=== PATIENT | male | born 1960 | race American Indian/Alaskan Native ===

== ENCOUNTER 2017-08-28 12:59 | Emergency (ER) | payer OTHER ==
[2017-08-28 13:16] VITALS: RESP 18; O2SAT 100
[2017-08-28] MEDS ORDERED: Morphine 2 mg/2 mL syringe IVP STA (13:25)
[2017-08-28] MEDS ORDERED: Sodium Chloride 0.9% 1,000 ML IV STA (13:28)
--- NOTE | 2017-08-28 13:37 | ED PDOC ---
Arrival/HPI - General Chief Complaint: Rib Injury Time Seen by Provider: 08/28/17 13:23 Historian: Patient - History of Present Illness Narrative History of Present Illness (Text): 08/28/17 13:34 A 56 year old male, whose medically history includes insulin dependent diabetes , who recently just immigrated from [facility] presents to the emergency department for gradual, atraumatic, spontaneous right sided mid axillary subcostal rib pain , which began two weeks ago. The patient notes that these episodes are intermittent, but are lasting hours at a time. He admits that the pain is worsened by twisting, turning, and sitting up in bed, otherwise the pain is dormant. He denies any further associated factors, shortness of breath, dysuria , hematuria, history of kidney stones, cough, fever, chills, or any other complaints at this time. The patient also notes an additional pain bilaterally to his knees and downward, which began several months ago. Time/Duration: > week (2 weeks) Symptom Onset: Sudden Symptom Course: Unchanged Activities at Onset: Light Context: Home Past Medical History - Provider Review Nursing Documentation Reviewed: Yes - Endocrine/Metabolic Hx Diabetes Mellitus Type 2: Yes - Psychiatric Hx Substance Use: No - Anesthesia Hx Anesthesia: No Hx Anesthesia Reactions: No Hx Malignant Hyperthermia: No Family/Social History - Physician Review Nursing Documentation Reviewed: Yes Family/Social History: No Known Family HX Smoking Status: Never Smoked Hx Alcohol Use: No Hx Substance Use: No Allergies/Home Meds Allergies/Adverse Reactions: Allergies No Known Allergies Allergy (Verified 08/28/17 13:12) Review of Systems - Physician Review All systems were reviewed & negative as marked: Yes - Review of Systems Constitutional: absent: Fevers Respiratory: absent: SOB, Cough Cardiovascular: Other (subcostal right sided rib pain ). absent: Chest Pain Genitourinary Male: absent: Dysuria, Hematuria Musculoskeletal: Other (bilateral knee pain moving downward) Physical Exam Vital Signs Reviewed: Yes Vital Signs Temp Pulse Resp BP Pulse Ox 08/28/17 17:23 67 18 162/97 H 100 08/28/17 12:59 98.6 F 70 18 155/99 H 100 Temperature: Afebrile Blood Pressure: Hypertensive Pulse: Regular Respiratory Rate: Normal Appearance: Positive for: Well-Appearing, Non-Toxic, Comfortable Pain Distress: None Mental Status: Positive for: Alert and Oriented X 3 - Systems Exam Head: Present: Atraumatic, Normocephalic Pupils: Present: PERRL Extroacular Muscles: Present: EOMI Conjunctiva: Present: Normal Mouth: Present: Moist Mucous Membranes Neck: Present: Normal Range of Motion Respiratory/Chest: Present: Clear to Auscultation, Good Air Exchange. No: Respiratory Distress, Accessory Muscle Use Cardiovascular: Present: Regular Rate and Rhythm, Normal S1, S2. No: Murmurs Abdomen: No: Tenderness, Distention, Peritoneal Signs Back: Present: Normal Inspection Upper Extremity: Present: Normal Inspection. No: Cyanosis, Edema Lower Extremity: Present: Normal Inspection. No: Edema Neurological: Present: GCS=15, CN II-XII Intact, Speech Normal Skin: Present: Warm, Dry, Normal Color. No: Rashes Psychiatric: Present: Alert, Oriented x 3, Normal Insight, Normal Concentration Medical Decision Making ED Course and Treatment: 08/28/17 13:37 Impression: A 56 year old male with right sided subcostal rib pain. Differential Diagnosis included but are not limited to: Plan: -- EKG -- Chest X-ray -- Labs -- IV Fluids -- Morphine -- Urinalysis -- Reassess and disposition Progress Notes: 08/28/17 18:07 serial bowel exams benign ct resulatation explained to patient and the importance of dietary modification to facilitate better bowel output. Importance of followup regarding left renal cyst. for which patient will be referred to urology followup. - Lab Interpretations Lab Results: 08/28/17 13:37 08/28/17 13:37 Lab Results 08/28/17 15:29: POC Glucose (mg/dL) 254 H 08/28/17 15:09: Urine Color Yellow, Urine Appearance Clear, Urine pH 6.0, Ur Specific [place] 1.015, Urine Protein Negative, Urine Glucose (UA) >=1000, Urine Ketones Negative, Urine Blood Negative, Urine Nitrate Negative, Urine Bilirubin Negative, Urine Urobilinogen 0.2, Ur Leukocyte Esterase Negative 08/28/17 13:37: Sodium 138, Potassium 5.0, Chloride 100, Carbon Dioxide 27, Anion Gap 17, BUN 14, Creatinine 0.8, Est GFR ( Amer) > 60, Est GFR (Non- Af Amer) > 60, Random Glucose 423 H*, Calcium 9.4, Total Bilirubin 0.3, AST 24, ALT 47, Alkaline Phosphatase 68, Total Protein 7.2, Albumin 4.2, Globulin 3.0, Albumin/Globulin Ratio 1.4 08/28/17 13:37: PT 11.1, INR 0.97, APTT 27.7 08/28/17 13:37: WBC 3.5 L, RBC 5.35, Hgb 14.9, Hct 41.8 L, MCV 78.1 L, MCH 27.9 , MCHC 35.6, RDW 12.6, Plt Count 262, MPV 11.1 H, Gran % 42.0 L, Lymph % (Auto) 48.0 H, [place] % (Auto) 4.3, Eos % (Auto) 5.1 H, Baso % (Auto) 0.6, Gran # 1.47, Lymph # (Auto) 1.7, [place] # (Auto) 0.2, Eos # (Auto) 0.2, Baso # (Auto) 0.02 - RAD Interpretation Radiology Orders: 08/28/17 13:23 CHEST TWO VIEWS (PA/LAT) [RAD] Stat 08/28/17 16:28 ABDOMEN & PELVIS [ABD & PELVIS IV CONTRAST ONLY] [CT] Stat - Medication Orders Current Medication Orders: Discontinued Medications Sodium Chloride (Sodium Chloride 0.9%) 1,000 mls @ 999 mls/hr IV .Q1H1M STA Stop: 08/28/17 14:28 Last Admin: 08/28/17 13:42 Dose: 999 mls/hr eMAR Start Stop Document 08/28/17 13:42 LA (Rec: 08/28/17 13:42 RAJANI [id number]) Intravenous Solution Start Date 08/28/17 Start Time 13:42 End Date 08/28/17 End time 14:43 Total Infusion Time 61 Morphine Sulfate (Morphine) 2 mg IVP STAT STA Stop: 08/28/17 13:26 Last Admin: 08/28/17 13:42 Dose: 2 mg IVP Administration Document 08/28/17 13:42 LA (Rec: 08/28/17 13:42 LA [id number]) Charges for Administration # of IVP Administrations 1 - Scribe Statement The provider has reviewed the documentation as recorded by the Dreaibvera Gallardo Provider Scribe Attestation: All medical record entries made by the Scribe were at my direction and personally dictated by me. I have reviewed the chart and agree that the record accurately reflects my personal performance of the history, physical exam, medical decision making, and the department course for this patient. I have also personally directed, reviewed, and agree with the discharge instructions and disposition. Disposition/Present on Arrival - Present on Arrival Any Indicators Present on Arrival: No History of DVT/PE: No History of Uncontrolled Diabetes: Yes Urinary Catheter: No History of Decub. Ulcer: No History Surgical Site Infection Following: None - Disposition Have Diagnosis and Disposition been Completed?: Yes Diagnosis: Constipation Disposition: HOME/ ROUTINE Disposition Time: 18:10 Patient Plan: Discharge Patient Problems: Current Active Problems Problem Status Onset Constipation Acute Condition: CRITICAL Discharge Instructions (ExitCare): Constipation in Adults, Constipation, Adult (DC) Print Language: MOHAWK Additional Instructions: Please be advised your blood testing is appearing within normal limits excepting your blood sugar which was elevated. your ct results have been given to you and betrays evidence of stool retention . You must include increased roughage (fruits/ and dark green leafy veegtables and brown rice) in your diet as well as increased water in between meals . Prescriptions: Acetaminophen [Tylenol] 650 mg PO Q8 PRN #40 capsule PRN Reason: Pain, Moderate (4-7) Polyethylene Glycol 3350 [Miralax] 17 gm PO DAILY 2 Days ml Psyllium Seed [Fiber Smooth] 283 gm PO BID PRN 14 Days powder PRN Reason: Constipation Sennosides [Senna] 8.6 mg PO HS PRN #20 tablet PRN Reason: Constipation Referrals: PCP,NO [Primary Care Provider] - Follow up with primary [facility] at [facility] [place] [Outside] - Follow up with primary Chandler Hopkins MD [Staff Provider] - Follow up with primary Forms: Accept Software (Slovak)
[2017-08-28 14:03] LABS: ALB/GLOB RATIO 1.4 (1.1-1.8); ALBUMIN 4.2 g/dL (3.0-4.8); ALT/SGPT 47 U/L (7-56); AST/SGOT 24 U/L (17-59); BLOOD UREA NITROGEN 14 mg/dL (7-21); CALCIUM 9.4 mg/dL (8.4-10.5); GFR AFRICAN-AMERICAN > 60; GFR NON-AFRICAN AMERICAN > 60
[2017-08-28 14:09] LABS: BASO # 0.02 K/mm3 (0.0-2.0); BASO % 0.6 % (0.0-3.0); EOS # 0.2 (0.0-0.7); EOS % 5.1 % (1.5-5.0); GRAN # 1.47 (1.4-6.5); HEMOGLOBIN 14.9 g/dL (14.0-18.0); LYMPH # 1.7 (1.2-3.4); MEAN CELL VOLUME 78.1 fl (80.0-105.0); MEAN CORPUSCULAR HEMOGLOBIN 27.9 pg (25.0-35.0); MEAN CORPUSCULAR HGB CONC 35.6 g/dl (31.0-37.0); MEAN PLATELET VOLUME 11.1 fl (7.0-11.0); MONO # 0.2 (0.1-0.6); MONO % 4.3 % (1.0-6.0); RBC 5.35 10^6/uL (3.5-6.1); RED CELL DISTRIBUTION WIDTH 12.6 % (11.5-14.5); WHITE BLOOD COUNT 3.5 10^3/ul (4.5-11.0)
[2017-08-28 14:15] LABS: INR 0.97 (0.93-1.08); PARTIAL THROMBOPLASTIN TIME 27.7 Seconds (25.1-36.5); PROTHROMBIN TIME 11.1 SECONDS (9.4-12.5)
[2017-08-28] MEDS ORDERED: Insulin Regular 1 UNITS/0.01 ML ML SC ONE (14:26)
--- NOTE | 2017-08-28 15:30 | RAD ---
HISTORY: Routine medical exam COMPARISON: No prior. TECHNIQUE: Chest PA and lateral FINDINGS: LUNGS: No active pulmonary disease. PLEURA: No significant pleural effusion identified. No pneumothorax apparent. CARDIOVASCULAR: Normal. OSSEOUS STRUCTURES: Minor multilevel degenerative spondylosis of the thoracic spine. VISUALIZED UPPER ABDOMEN: Normal. OTHER FINDINGS: None. IMPRESSION: No active disease.
[2017-08-28 15:46] LABS: URINE BILIRUBIN NEGATIVE (NEGATIVE); URINE BLOOD NEGATIVE (NEGATIVE); URINE GLUCOSE (UA) >=1000 mg/dL (NEGATIVE); URINE LEUKOCYTE ESTERASE NEGATIVE Leu/uL (NEGATIVE); URINE PROTEIN NEGATIVE mg/dL (<30 mg/dL); URINE UROBILINOGEN 0.2 E.U./dL (<1 E.U./dL)
[2017-08-28 15:48] LABS: URINE APPEARANCE CLEAR (CLEAR); URINE COLOR YELLOW (YELLOW)
[2017-08-28] MEDS ORDERED: Iohexol 350 MG/100 ML VIAL ONE (16:52)
--- NOTE | 2017-08-28 17:27 | CT ---
PROCEDURE: CT abdomen pelvis dated 08/28/2017 HISTORY: Right flank pain COMPARISON: None. TECHNIQUE: Contiguous helical/transaxial images of the abdomen and pelvis of performed following intravenous injection of approximately 100 cc Omnipaque 350 contrast material. Additional 2D sagittal and coronal reformats generated. This CT exam was performed using one or more of the following dose reduction techniques: Automated exposure control, adjustment of the mA and/or kV according to patient size, and/or use of iterative reconstruction technique. Radiation dose: Total exam DLP = 291.51 mGy-cm. FINDINGS: LOWER THORAX: The heart size is within range of normal. No significant pericardial effusion. Mild passive/dependent type atelectasis both posterior lower lung zones. Mild emphysematous changes. No effusion or basilar pneumothorax There is a small hiatal hernia LIVER: Liver exhibits normal size measuring approximately 15 cm in CC dimension. Mild diffuse fatty hepatic infiltration. No obvious hepatic masses or collections seen on this study. Portal and splenic veins are opacified. GALLBLADDER AND BILE DUCTS: Unremarkable. PANCREAS: Unremarkable. No mass. No ductal dilatation. SPLEEN: Unremarkable. No splenomegaly. ADRENALS: Unremarkable. KIDNEYS AND URETERS: Kidneys demonstrate symmetric nephrograms. No evidence of nephrolithiasis or hydronephrosis. Partially exophytic well-circumscribed round/elliptical shaped approximately 3.2 cm low-attenuation focus arising from the anterior cortex upper pole left kidney likely representing cyst hyperdense cyst with Hounsfield units ranging between the low teens to mid 20s. Followup ultrasound could confirm. BLADDER: Urinary bladder physiologically distended. No evidence of intraluminal urinary bladder calculi. The REPRODUCTIVE: Prostate gland measures approximately 4 cm in transverse dimension. APPENDIX: What is felt to represent normal appendix best seen on axial image number [id number] henry the and coronal image number [id number]. No periappendiceal inflammatory changes. BOWEL: Evaluation of the bowel is limited due to the lack of oral contrast material. Stomach is relatively collapsed which in part accounts for thick-walled appearance. Gastritis or other intrinsic/invasive wall lesion not excluded. Clinical correlation recommended. Visualized loops of small bowel exhibit relatively normal contour and caliber. No evidence of acute mechanical small bowel obstruction however there are of fecalized appearing contents consistent with the small bowel stasis There is a large amount of stool seen within the cecum at ascending and to a lesser degree transverse and descending colon consistent with fecal retention/constipation. The no definitive mural wall thickening. PERITONEUM: Unremarkable. No fluid collection. No free air. Small fat containing umbilical hernia. LYMPH NODES: Unremarkable. No enlarged lymph nodes. VASCULATURE: Unremarkable. No aortic aneurysm. BONES: Minor degenerative spondylosis lower thoracic and lumbar spine. There are no acute compression fractures no retropulsed fragments. Vertebral bodies exhibit normal stature. OTHER FINDINGS: None. IMPRESSION: Findings consistent with constipation as described. Mild fatty hepatic infiltration. Rounded low--attenuation focus a arising from the anterior aspect upper pole left kidney which exhibits Hounsfield units ranging between the low teens to mid 20s most likely representing a hyperdense cyst. Followup ultrasound could confirm. See above discussion for additional details and findings.
[2017-08-28 19:00] LABS: HDL CHOLESTEROL 27 mg/dL (29-60)
[2017-08-28 19:11] LABS: LDL CHOLESTEROL 140 mg/dL (0-129)
[2017-08-28 19:12] VITALS: BP 149/88; PULSE 74; TEMP 98.4
== END 2017-08-28 19:25 | disposition home or self-care (01) ==
LOC: ED 12:59
DX: K59.00 Constipation, unspecified (principal); E11.9 Type 2 diabetes mellitus without complications; Z79.4 Long term (current) use of insulin
CPT/HCPCS: 71046; 74177; 80053; 80061; 81003; 82948; 83036; 85025; 85610; 85730; 87040; 87086; 96361; 96374; 99284; J2270; J7030; Q9967

== ENCOUNTER 2017-09-25 09:51 | Emergency (ER) | payer OTHER ==
[2017-09-25 10:07] VITALS: TEMP 98.3
[2017-09-25] MEDS ORDERED: Sodium Chloride 0.9% 1,000 ML IV STA ×2 (10:34→12:12)
[2017-09-25] MEDS ORDERED: Insulin Regular 1 UNITS/0.01 ML ML IVP STA ×2 (10:35→11:53)
[2017-09-25 10:47] LABS: BASO # 0.01 K/mm3 (0.0-2.0); BASO % 0.3 % (0.0-3.0); EOS # 0.3 (0.0-0.7); EOS % 9.3 % (1.5-5.0); GRAN # 1.6 (1.4-6.5); GRAN % 43.7 % (50.0-68.0); HEMOGLOBIN 14.3 g/dL (14.0-18.0); LYMPH # 1.5 (1.2-3.4); MEAN CELL VOLUME 78.5 fl (80.0-105.0); MEAN CORPUSCULAR HEMOGLOBIN 27.7 pg (25.0-35.0); MEAN CORPUSCULAR HGB CONC 35.2 g/dl (31.0-37.0); MONO # 0.2 (0.1-0.6); MONO % 5.7 % (1.0-6.0); RBC 5.17 10^6/uL (3.5-6.1); RED CELL DISTRIBUTION WIDTH 12.7 % (11.5-14.5); WHITE BLOOD COUNT 3.7 10^3/ul (4.5-11.0)
--- NOTE | 2017-09-25 10:47 | ED PDOC ---
Arrival/HPI - General Chief Complaint: Back Pain Time Seen by Provider: 09/25/17 10:10 Historian: Patient - History of Present Illness Narrative History of Present Illness (Text): 09/25/17 10:36 56yo male with pmhx of NIDDM who present with complaint of elevated BS and lower back pain. The brother by the bedside report history of similar back pain years ago. States he was seen by a Doctor in [place] country then and the pain resolved with physical therapy. He describes pain as crampy/sharp usually worse with prolonged sitting and walking . Pain started 2weeks ago and became increasingly worse. Notes that pain radiates to his left lower leg. He states his sugar has been uncontrolled with Novolog 70/30. States Novolog was prescribed here earlier this month. He denies abdominal pain, nausea, vomiting, focal weakness, chest pain, urinary/fecal incontinence, saddle anesthesia, fever , chills, any other complaint. Past Medical History - Provider Review Nursing Documentation Reviewed: Yes - Infectious Disease Hx of Infectious Diseases: None - Endocrine/Metabolic Hx Diabetes Mellitus Type 2: Yes - Psychiatric Hx Substance Use: No - Anesthesia Hx Anesthesia: No Hx Anesthesia Reactions: No Hx Malignant Hyperthermia: No Family/Social History - Physician Review Nursing Documentation Reviewed: Yes Family/Social History: Unknown Family HX Smoking Status: Never Smoked Hx Alcohol Use: No Hx Substance Use: No Allergies/Home Meds Allergies/Adverse Reactions: Allergies No Known Allergies Allergy (Verified 08/28/17 13:12) Home Medications: Home Meds Medication Instructions Recorded Confirmed Insulin Aspart Prot/Insuln Asp 0 unit SQ DAILY 09/25/17 09/25/17 [Novolog Mix 70-30 Vial] Review of Systems - Physician Review All systems were reviewed & negative as marked: Yes - Review of Systems Constitutional: Normal Eyes: Normal ENT: Normal Respiratory: Normal Cardiovascular: Normal Gastrointestinal: Normal Genitourinary Male: Normal Musculoskeletal: Back Pain Skin: Normal Neurological: Normal Endocrine: Normal Hemo/Lymphatic: Normal Psychiatric: Normal Physical Exam Vital Signs Reviewed: Yes Vital Signs Temp Pulse Resp BP Pulse Ox 09/25/17 13:55 78 18 140/80 99 09/25/17 13:00 78 18 132/79 98 09/25/17 11:51 69 18 136/80 99 09/25/17 10:02 98.3 F 86 16 99 Temperature: Afebrile Blood Pressure: Normal Pulse: Regular Respiratory Rate: Normal Appearance: Positive for: Well-Appearing, Non-Toxic, Comfortable Pain Distress: None Mental Status: Positive for: Alert and Oriented X 3 - Systems Exam Head: Present: Atraumatic, Normocephalic Pupils: Present: PERRL Extroacular Muscles: Present: EOMI Conjunctiva: Present: Normal Mouth: Present: Moist Mucous Membranes Neck: Present: Normal Range of Motion Respiratory/Chest: Present: Clear to Auscultation, Good Air Exchange. No: Respiratory Distress, Accessory Muscle Use Cardiovascular: Present: Regular Rate and Rhythm, Normal S1, S2. No: Murmurs Abdomen: No: Tenderness, Distention, Peritoneal Signs Back: Present: Pain with Leg Raise (Left leg). No: CVA Tenderness, Midline Tenderness, Paraspinal Tenderness Upper Extremity: Present: Normal Inspection. No: Cyanosis, Edema Lower Extremity: Present: Normal Inspection. No: Edema Neurological: Present: GCS=15, CN II-XII Intact, Speech Normal Skin: Present: Warm, Dry, Normal Color. No: Rashes Psychiatric: Present: Alert, Oriented x 3, Normal Insight, Normal Concentration Medical Decision Making ED Course and Treatment: 09/25/17 18:49 PT presented for stated history. His back pain improved with medication in ED. He was ambulatory and neurologically intact. His BS improved to 173 in ED after 2l of NS and 16units of Insulin. Pt have type 2 Diabetes and currently only on Novolog. Rx of Metformin 1000mg bid was added. Pt was advised and educated on a strict FS before taking his medications . Advised to f/u with a Doctor/clinic. Rx of Naprosyn, lidoderm and flexeril was given for back pain. Advised to apply warm compress to area. TRT ED for any new or worsening symptoms. - Lab Interpretations Lab Results: 09/25/17 10:35 09/25/17 10:35 Lab Results 09/25/17 13:33: POC Glucose (mg/dL) 173 H 09/25/17 11:38: POC Glucose (mg/dL) 300 H 09/25/17 10:40: Urine Color Light yellow, Urine Appearance Clear, Urine pH 6.0, Ur Specific [place] <= 1.005, Urine Protein Negative, Urine Glucose (UA) >=1000 , Urine Ketones Negative, Urine Blood Negative, Urine Nitrate Negative, Urine Bilirubin Negative, Urine Urobilinogen 0.2, Ur Leukocyte Esterase Negative 09/25/17 10:35: Sodium 136, Potassium 4.6, Chloride 98, Carbon Dioxide 26, Anion Gap 17, BUN 18, Creatinine 0.8, Est GFR ( Amer) > 60, Est GFR (Non- Af Amer) > 60, Random Glucose 562 H* D, Calcium 9.0, Total Bilirubin 0.5, AST 19 , ALT 30, Alkaline Phosphatase 74, Lactate Dehydrogenase 336, Total Creatine Kinase 97, Troponin I < 0.01, Total Protein 6.6, Albumin 3.9, Globulin 2.6, Albumin/Globulin Ratio 1.5 09/25/17 10:35: PT 11.8, INR 1.03, APTT 26.4 09/25/17 10:35: WBC 3.7 L, RBC 5.17, Hgb 14.3, Hct 40.6 L, MCV 78.5 L, MCH 27.7 , MCHC 35.2, RDW 12.7, Plt Count 212, MPV 11.0, Gran % 43.7 L, Lymph % (Auto) 41.0 H, [place] % (Auto) 5.7, Eos % (Auto) 9.3 H, Baso % (Auto) 0.3, Gran # 1.60, Lymph # (Auto) 1.5, [place] # (Auto) 0.2, Eos # (Auto) 0.3, Baso # (Auto) 0.01 09/25/17 10:33: POC Glucose (mg/dL) > 500 H* - RAD Interpretation Radiology Orders: 09/25/17 10:34 LS SPINE WITH OBL > 18 YRS OLD [RAD] Stat - Medication Orders Current Medication Orders: Discontinued Medications Cyclobenzaprine HCl (Flexeril) 10 mg PO STAT STA Stop: 09/25/17 10:36 Last Admin: 09/25/17 10:48 Dose: 10 mg Sodium Chloride (Sodium Chloride 0.9%) 1,000 mls @ 999 mls/hr IV .Q1H1M STA Stop: 09/25/17 11:34 Last Admin: 09/25/17 10:48 Dose: 999 mls/hr eMAR Start Stop Document 09/25/17 10:48 EWO (Rec: 09/25/17 10:48 EWO [id number]) Intravenous Solution Start Date 09/25/17 Start Time 10:48 End Date 09/25/17 End time 11:48 Total Infusion Time 60 Sodium Chloride (Sodium Chloride 0.9%) 1,000 mls @ 999 mls/hr IV .Q1H1M STA Stop: 09/25/17 13:12 Last Admin: 09/25/17 12:25 Dose: 999 mls/hr eMAR Start Stop Document 09/25/17 12:25 EWO (Rec: 09/25/17 12:26 EWO [id number]) Intravenous Solution Start Date 09/25/17 Start Time 12:25 End Date 09/25/17 End time 13:25 Total Infusion Time 60 Insulin Human Regular (Humulin R) 12 units IVP ONCE STA Stop: 09/25/17 10:36 Last Admin: 09/25/17 10:48 Dose: 12 unit MAR Blood Glucose Document 09/25/17 10:48 EWO (Rec: 09/25/17 10:48 EWO [id number]) Blood Glucose Finger Stick Blood Glucose (70-120) 500 IVP Administration Document 09/25/17 10:48 EWO (Rec: 09/25/17 10:48 EWO [id number]) Charges for Administration # of IVP Administrations 1 Insulin Human Regular (Humulin R) 4 units IVP ONCE STA Stop: 09/25/17 11:54 Last Admin: 09/25/17 12:11 Dose: 4 unit MAR Blood Glucose Document 09/25/17 12:11 EWO (Rec: 09/25/17 12:11 EWO [id number]) Blood Glucose Finger Stick Blood Glucose (70-120) 300 IVP Administration Document 09/25/17 12:11 EWO (Rec: 09/25/17 12:11 EWO [id number]) Charges for Administration # of IVP Administrations 2 Ketorolac Tromethamine (Toradol) 30 mg IVP STAT STA Stop: 09/25/17 10:35 Last Admin: 09/25/17 10:48 Dose: 30 mg MAR Pain Assessment Document 09/25/17 10:48 EWO (Rec: 09/25/17 10:48 EWO [id number]) Pain Reassessment Is this a pain reassessment? No Presence of Pain Presence of Pain Yes Pain Scale Used Pain Scale Used Numeric IVP Administration Document 09/25/17 10:48 MALINI (Rec: 09/25/17 10:48 MALINI [id number]) Charges for Administration # of IVP Administrations 1 Disposition/Present on Arrival - Present on Arrival Any Indicators Present on Arrival: No History of DVT/PE: No History of Uncontrolled Diabetes: Yes Urinary Catheter: No History of Decub. Ulcer: No History Surgical Site Infection Following: None - Disposition Have Diagnosis and Disposition been Completed?: Yes Diagnosis: Sciatica, Hyperglycemia Disposition: HOME/ ROUTINE Disposition Time: 13:40 Patient Plan: Discharge Condition: STABLE Discharge Instructions (ExitCare): Hyperglycemia, Adult, Sciatica (DC) Additional Instructions: Follow up with your Doctor/clinic Return to ED for any new or worsening symptoms Prescriptions: Cyclobenzaprine [Cyclobenzaprine HCl] 10 mg PO TID #12 tab Lidocaine 5% [Lidoderm] 1 ea TD BID #10 patch MetFORMIN [glucoPHAGE] 1,000 mg PO BID #40 tab Naproxen [Naprosyn] 500 mg PO BID #20 tablet Referrals: [facility] [place] - Follow up with primary Forms: [employer] ([place]izen [place])
[2017-09-25 10:53] LABS: URINE BILIRUBIN NEGATIVE (NEGATIVE); URINE BLOOD NEGATIVE (NEGATIVE); URINE GLUCOSE (UA) >=1000 mg/dL (NEGATIVE); URINE LEUKOCYTE ESTERASE NEGATIVE Leu/uL (NEGATIVE); URINE PROTEIN NEGATIVE mg/dL (<30 mg/dL); URINE UROBILINOGEN 0.2 E.U./dL (<1 E.U./dL)
[2017-09-25 10:54] LABS: URINE APPEARANCE CLEAR (CLEAR); URINE COLOR LIGHT YELLOW (YELLOW)
[2017-09-25 11:04] LABS: INR 1.03 (0.93-1.08); PARTIAL THROMBOPLASTIN TIME 26.4 Seconds (25.1-36.5); PROTHROMBIN TIME 11.8 SECONDS (9.4-12.5)
[2017-09-25 11:09] LABS: TROPONIN I < 0.01 ng/mL
[2017-09-25 11:13] LABS: ALB/GLOB RATIO 1.5 (1.1-1.8); ALBUMIN 3.9 g/dL (3.0-4.8); ALT/SGPT 30 U/L (7-56); AST/SGOT 19 U/L (17-59); BLOOD UREA NITROGEN 18 mg/dL (7-21); GFR AFRICAN-AMERICAN > 60; GFR NON-AFRICAN AMERICAN > 60
[2017-09-25 12:46] VITALS: RESP 18
[2017-09-25 13:50] VITALS: PULSE 78
[2017-09-25 13:55] VITALS: BP 140/80; O2SAT 99
--- NOTE | 2017-09-25 17:38 | RAD ---
PROCEDURE: Radiographs of the Lumbar Spine. HISTORY: Pain. No history of recent/ related trauma provided COMPARISON: No prior. FINDINGS: BONES: Normal alignment. No listhesis. No fracture. DISC SPACES: Unremarkable. OTHER FINDINGS: None. IMPRESSION: Unremarkable radiographs of the lumbar spine.
== END 2017-09-25 13:55 | disposition home or self-care (01) ==
LOC: ED 09:51
DX: E11.65 Type 2 diabetes mellitus with hyperglycemia (principal); M54.30 Sciatica, unspecified side
CPT/HCPCS: 72110; 80053; 81003; 82550; 82948; 83615; 84484; 85025; 85610; 85730; 96361; 96374; 96375; 96376; 99283; J1885; J7030

== ENCOUNTER 2017-10-06 17:21 | Emergency (ER) | payer OTHER ==
[2017-10-06 17:56] VITALS: TEMP 97.9; O2SAT 100; BMI 22.1
--- NOTE | 2017-10-06 18:19 | ED PDOC ---
Arrival/HPI - General Chief Complaint: High Blood Pressure Time Seen by Provider: 10/06/17 17:32 Historian: Patient - History of Present Illness Narrative History of Present Illness (Text): 10/06/17 18:03 57yo male with pmhx of Diabetes and chronic lower back pain referred to the ED from the clinic for high BP. Patient states he went to the ED today for a routine evaluation and while he was there, his BP was elevated. He denies previous history of hypertension. He denies headache, chest pain, slurred speech , focal weakness, visual changes, neck pain, any other complaint. Past Medical History - Provider Review Nursing Documentation Reviewed: Yes - Infectious Disease Hx of Infectious Diseases: None - Endocrine/Metabolic Hx Diabetes Mellitus Type 2: Yes - Musculoskeletal/Rheumatological Hx Back Pain: Yes - Psychiatric Hx Substance Use: No - Anesthesia Hx Anesthesia: No Hx Anesthesia Reactions: No Hx Malignant Hyperthermia: No Family/Social History - Physician Review Nursing Documentation Reviewed: Yes Family/Social History: Unknown Family HX Smoking Status: Never Smoked Hx Alcohol Use: No Hx Substance Use: No Allergies/Home Meds Allergies/Adverse Reactions: Allergies No Known Allergies Allergy (Verified 10/06/17 17:52) Home Medications: Home Meds Medication Instructions Recorded Confirmed Insulin Aspart Prot/Insuln Asp 0 unit SQ DAILY 09/25/17 10/06/17 [Novolog Mix 70-30 Vial] Review of Systems - Physician Review All systems were reviewed & negative as marked: Yes - Review of Systems Constitutional: Other (elevated BP) Eyes: Normal ENT: Normal Respiratory: Normal Cardiovascular: Normal Gastrointestinal: Normal Genitourinary Male: Normal Musculoskeletal: Normal Skin: Normal Neurological: Normal Endocrine: Normal Hemo/Lymphatic: Normal Psychiatric: Normal Physical Exam Vital Signs Reviewed: Yes Vital Signs Temp Pulse Resp BP Pulse Ox 10/06/17 21:47 88 18 146/90 100 10/06/17 20:20 75 15 132/93 H 100 10/06/17 18:36 72 18 159/100 H 100 10/06/17 18:31 75 148/104 H 10/06/17 17:52 97.9 F 83 18 148/104 H 100 Temperature: Afebrile Blood Pressure: Hypertensive Pulse: Regular Respiratory Rate: Normal Appearance: Positive for: Well-Appearing, Non-Toxic, Comfortable Pain Distress: None Mental Status: Positive for: Alert and Oriented X 3 - Systems Exam Head: Present: Atraumatic, Normocephalic Pupils: Present: PERRL Extroacular Muscles: Present: EOMI Conjunctiva: Present: Normal Mouth: Present: Moist Mucous Membranes Neck: Present: Normal Range of Motion Respiratory/Chest: Present: Clear to Auscultation, Good Air Exchange. No: Respiratory Distress, Accessory Muscle Use Cardiovascular: Present: Regular Rate and Rhythm, Normal S1, S2. No: Murmurs Abdomen: No: Tenderness, Distention, Peritoneal Signs Back: Present: Normal Inspection Upper Extremity: Present: Normal Inspection. No: Cyanosis, Edema Lower Extremity: Present: Normal Inspection. No: Edema Neurological: Present: GCS=15, CN II-XII Intact, Speech Normal Skin: Present: Warm, Dry, Normal Color. No: Rashes Psychiatric: Present: Alert, Oriented x 3, Normal Insight, Normal Concentration Medical Decision Making ED Course and Treatment: 10/07/17 00:57 57yo male referred to ED for elevated BP. He was neurologically intact in ED. He denied headache, chest pain, slurred speech, headache, nausea, focal weakness , any somatic complaint. Lab was reviewed and nonspecific. His BP improved in ED with amlodipine. He was observed in ED and remained comfortable and neurologically intact. He was DC home with Amlodipine 5mg rx. Advised to check his BP daily and reduce sodium intake. He was referred to the clinic for re evaluation. - Lab Interpretations Lab Results: 10/06/17 18:40 10/06/17 18:40 Lab Results 10/06/17 18:40: PT 11.1, INR 0.97, APTT 26.9 10/06/17 18:40: Sodium 140, Potassium 5.0, Chloride 100, Carbon Dioxide 29, Anion Gap 16, BUN 12, Creatinine 0.6 L, Est GFR ( Amer) > 60, Est GFR ( Non-Af Amer) > 60, Random Glucose 218 H, Calcium 9.9, Magnesium 1.7, Total Bilirubin 0.6, AST 18, ALT 31, Alkaline Phosphatase 74, Lactate Dehydrogenase 361, Total Creatine Kinase 116, Troponin I < 0.01, Total Protein 7.4, Albumin 4.3, Globulin 3.1, Albumin/Globulin Ratio 1.4 10/06/17 18:40: Urine Color Light yellow, Urine Appearance Clear, Urine pH 6.5, Ur Specific [place] <= 1.005, Urine Protein Negative, Urine Glucose (UA) 100 H, Urine Ketones Negative, Urine Blood Negative, Urine Nitrate Negative, Urine Bilirubin Negative, Urine Urobilinogen 0.2, Ur Leukocyte Esterase Negative 10/06/17 18:40: WBC 4.6, RBC 5.35, Hgb 14.9, Hct 41.7 L, MCV 77.9 L, MCH 27.9, MCHC 35.7, RDW 13.1, Plt Count 294, MPV 10.7, Gran % 41.2 L, Lymph % (Auto) 41.5 H, [place] % (Auto) 8.2 H, Eos % (Auto) 8.0 H, Baso % (Auto) 1.1, Gran # 1.91 , Lymph # (Auto) 1.9, [place] # (Auto) 0.4, Eos # (Auto) 0.4, Baso # (Auto) 0.05 - Medication Orders Current Medication Orders: Discontinued Medications Amlodipine Besylate (Norvasc) 5 mg PO STAT STA Stop: 10/06/17 18:02 Last Admin: 10/06/17 18:31 Dose: 5 mg MAR Pulse and Blood Pressure Document 10/06/17 18:31 OCS (Rec: 10/06/17 18:32 OCS [id number]) Pulse Pulse Rate (60-90) 75 Blood Pressure Blood Pressure (100/60-150/90) 148/104 Disposition/Present on Arrival - Present on Arrival Any Indicators Present on Arrival: No History of DVT/PE: No History of Uncontrolled Diabetes: Yes Urinary Catheter: No History of Decub. Ulcer: No History Surgical Site Infection Following: None - Disposition Have Diagnosis and Disposition been Completed?: Yes Diagnosis: Hypertension Disposition: HOME/ ROUTINE Disposition Time: 21:10 Patient Plan: Discharge Condition: STABLE Discharge Instructions (ExitCare): High Blood Pressure in Adults, Controlling Your Blood Pressure Through Lifestyle Additional Instructions: Follow up with the clinic Return to ED for any new or worsening symptoms Prescriptions: amLODIPine [Norvasc] 5 mg PO DAILY #15 tab Referrals: PCP,NO [Primary Care Provider] - Follow up with primary Forms: [employer] ([place])
[2017-10-06 19:06] LABS: BASO # 0.05 K/mm3 (0.0-2.0); BASO % 1.1 % (0.0-3.0); EOS # 0.4 (0.0-0.7); GRAN # 1.91 (1.4-6.5); GRAN % 41.2 % (50.0-68.0); HEMOGLOBIN 14.9 g/dL (14.0-18.0); LYMPH # 1.9 (1.2-3.4); LYMPH % 41.5 % (22.0-35.0); MEAN CELL VOLUME 77.9 fl (80.0-105.0); MEAN CORPUSCULAR HEMOGLOBIN 27.9 pg (25.0-35.0); MEAN CORPUSCULAR HGB CONC 35.7 g/dl (31.0-37.0); MEAN PLATELET VOLUME 10.7 fl (7.0-11.0); MONO # 0.4 (0.1-0.6); MONO % 8.2 % (1.0-6.0); RBC 5.35 10^6/uL (3.5-6.1); RED CELL DISTRIBUTION WIDTH 13.1 % (11.5-14.5); WHITE BLOOD COUNT 4.6 10^3/ul (4.5-11.0)
[2017-10-06 19:14] LABS: PH,URINE 6.5 (4.7-8.0); URINE BILIRUBIN NEGATIVE (NEGATIVE); URINE BLOOD NEGATIVE (NEGATIVE); URINE GLUCOSE (UA) 100 mg/dL (NEGATIVE); URINE LEUKOCYTE ESTERASE NEGATIVE Leu/uL (NEGATIVE); URINE PROTEIN NEGATIVE mg/dL (<30 mg/dL); URINE UROBILINOGEN 0.2 E.U./dL (<1 E.U./dL)
[2017-10-06 19:15] LABS: INR 0.97 (0.93-1.08); PROTHROMBIN TIME 11.1 SECONDS (9.4-12.5)
[2017-10-06 19:16] LABS: PARTIAL THROMBOPLASTIN TIME 26.9 Seconds (25.1-36.5)
[2017-10-06 19:20] LABS: URINE APPEARANCE CLEAR (CLEAR); URINE COLOR LIGHT YELLOW (YELLOW)
[2017-10-06 19:32] LABS: ALB/GLOB RATIO 1.4 (1.1-1.8); ALBUMIN 4.3 g/dL (3.0-4.8); AST/SGOT 18 U/L (17-59); BLOOD UREA NITROGEN 12 mg/dL (7-21); CALCIUM 9.9 mg/dL (8.4-10.5); GFR AFRICAN-AMERICAN > 60; GFR NON-AFRICAN AMERICAN > 60
[2017-10-06 19:33] LABS: ALT/SGPT 31 U/L (7-56); TROPONIN I < 0.01 ng/mL
[2017-10-07] VITALS: BP 146/90; PULSE 88; RESP 18
--- NOTE | 2017-10-07 10:07 | CARD ---
APPROVED REPORT Date of service: 10/06/2017 EKG Measurement Heart [id number] <Conclusion> Normal sinus rhythm Possible Left atrial enlargement Septal infarct, age undetermined Abnormal ECG
== END 2017-10-06 21:47 | disposition home or self-care (01) ==
LOC: ED 17:21
DX: I10 Essential (primary) hypertension (principal); E11.9 Type 2 diabetes mellitus without complications